=== PATIENT | male | born 1955 | race Caucasian/White ===

== ENCOUNTER 2020-11-24 23:58 | Inpatient (IN) | payer SELFPAY ==
[2020-11-25] MEDS ORDERED: Nitroglycerin 2% Ointment 1 INCH/1 GM Packet ONE (03:39)
[2020-11-25] MEDS ORDERED: hydrALAZINE 20 MG/ML VIAL ONE (03:40)
[2020-11-25] MEDS ORDERED: Ondansetron PF 4 MG/2 ML Vial IVP PRN (03:47)
[2020-11-25] MEDS ORDERED: Acetaminophen 325 MG TAB PO PRN (03:47)
[2020-11-25] MEDS ORDERED: Acetaminophen 650 MG Suppository PR PRN (03:47)
[2020-11-25] MEDS ORDERED: Ondansetron ODT 4 MG TAB PO PRN (03:47)
[2020-11-25] MEDS ORDERED: Nitroglycerin 0.4 MG TAB (25 Tab Bottle) SL PRN ×2 (03:47→16:25)
[2020-11-25 03:53] VITALS: BMI 23.6
[2020-11-25] MEDS ORDERED: Labetalol HCl 100 MG/20 ML VIAL SLOW IVP PRN (04:00)
[2020-11-25] MEDS ORDERED: hydrALAZINE 20 MG/ML VIAL SLOW IVP PRN (04:00)
[2020-11-25] MEDS ORDERED: Morphine 4 MG/ML VIAL SLOW IVP SCH (04:00)
[2020-11-25] MEDS ORDERED: Morphine 4 MG/ML VIAL SLOW IVP PRN (04:12)
[2020-11-25] MEDS ORDERED: Aspirin Chewable 81 MG TAB PO SCH (04:15)
[2020-11-25] MEDS ORDERED: methylPREDNISolone Sod Succ 40 MG VIAL IVP SCH ×2 (04:15→09:00)
[2020-11-25] MEDS ORDERED: Amlodipine 10 MG TAB PO SCH (04:30)
[2020-11-25] MEDS ORDERED: Azithromycin 500 MG in Sodium Chloride 0.9% 250 ML 250 ML IVPB SCH (05:00)
[2020-11-25 05:14] LABS: Troponin I 6.551 ng/mL (< 0.028)
[2020-11-25 08:00] LABS: #Lymphocytes 0.8 thou/uL (1.20-3.40); #Monocytes 0.2 thou/uL (0.11-0.59); %Basophils 0.1 % (0.0-1.0); %Eosinophils 0.1 % (0.0-10.0); %Lymphocytes 4.8 % (21.0-51.0); %Monocytes 1.4 % (0.0-10.0); %Neutrophils 93.6 % (42.0-75.0); Hemoglobin 14.3 g/dL (14.0-18.0); Mean Corpuscular HGB CONC 33.8 g/dL (32.0-36.0); Mean Corpuscular Hemoglobin 31.2 pg (27.0-31.0); Mean Corpuscular Volume 92.2 fL (78.0-98.0); Mean Platelet Volume 7.6 fL (7.4-10.4); Platelet Count 286 thou/uL (130-400); RBC Distribution Width 13.1 % (11.5-14.5); Red Blood Cell (RBC) Count 4.59 mill/uL (4.70-6.10); White Blood Cell (WBC) Count 16.1 thou/uL (4.8-10.8)
[2020-11-25] MEDS: Aspirin Chewable 81 MG TAB PO SCH (08:17)
[2020-11-25 08:21] LABS: Anion Gap 14 mmol/L (10-20); BUN (Urea Nitrogen) 14 mg/dL (8.4-25.7); Calc. Creatinine Clearance 84 mL/min (70-130); Calcium 9.2 mg/dL (7.8-10.44); Carbon Dioxide 25 mmol/L (23-31); Chloride 104 mmol/L (98-107); Glucose 119 mg/dL (80-115); Potassium 4.6 mmol/L (3.5-5.1); Sodium 138 mmol/L (136-145)
[2020-11-25 09:59] LABS: Magnesium 1.9 mg/dL (1.6-2.6)
[2020-11-25] MEDS ORDERED: cloNIDine 0.1 MG TAB PO PRN (10:34)
[2020-11-25] MEDS ORDERED: Magnesium Sulfate 2 GM in Sodium Chloride 0.9% 100 ML IVPB SCH (11:00)
[2020-11-25] MEDS ORDERED: Magnesium 2 GM/50 ML 2 GM in Premix Bag 1 BAG IVPB SCH (11:00)
[2020-11-25] MEDS ORDERED: Communication Order-Pharmacy FS SCH (12:15)
[2020-11-25] MEDS ORDERED: Heparin 10,000 UNITS/ 10 ML VIAL ONE ×2 (12:56→15:16)
[2020-11-25] MEDS ORDERED: Verapamil 5 MG/2 ML VIAL ONE (12:56)
[2020-11-25] MEDS ORDERED: Nitroglycerin 100MG/250ML BOT 250 ML ONE (12:56)
[2020-11-25] MEDS ORDERED: Lidocaine 1% (PF) 30 ML VIAL ONE (12:56)
[2020-11-25] MEDS ORDERED: Enoxaparin Sodium 80 MG/0.8 ML SYRINGE SC SCH (13:00)
[2020-11-25 13:10] LABS: Troponin I 57.199 ng/mL (< 0.028)
[2020-11-25] MEDS ORDERED: Midazolam HCl 2 mg/2 ml Vial ONE (14:33)
[2020-11-25] MEDS ORDERED: Fentanyl 100 MCG/2 ML VIAL ONE (14:58)
[2020-11-25] MEDS ORDERED: Clopidogrel Bisulfate 300 MG TAB ONE (15:19)
[2020-11-25] MEDS ORDERED: TICAGRELOR 90 MG TABLET ONE (15:44)
[2020-11-25] MEDS ORDERED: Acetaminophen/Codeine 30-300mg Tablet PO PRN ×2 (16:25)
[2020-11-25] MEDS ORDERED: Sodium Chloride 0.9% 200 ML IV PRN (16:25)
[2020-11-25] MEDS ORDERED: TICAGRELOR 90 MG TABLET PO SCH ×2 (16:25→21:00)
[2020-11-25] MEDS ORDERED: Carvedilol 3.125 MG TAB PO SCH (17:00)
[2020-11-25] MEDS: Carvedilol 3.125 MG TAB PO SCH (18:02)
[2020-11-25] MEDS: Doxycycline 100 MG CAP PO SCH (20:51)
[2020-11-25] MEDS: Enoxaparin Sodium 60 MG/0.6 ML SYRINGE SC SCH ×2 (20:51→21:38)
[2020-11-25] MEDS ORDERED: Atorvastatin Calcium 40 MG TAB PO SCH ×2 (21:00)
[2020-11-26 03:58] LABS: #Lymphocytes 1.9 thou/uL (1.20-3.40); #Monocytes 1.7 thou/uL (0.11-0.59); #Neutrophils 15.6 thou/uL (1.40-6.50); %Basophils 0.2 % (0.0-1.0); %Eosinophils 0.2 % (0.0-10.0); %Lymphocytes 9.7 % (21.0-51.0); %Monocytes 8.6 % (0.0-10.0); %Neutrophils 81.3 % (42.0-75.0); Hemoglobin 13.8 g/dL (14.0-18.0); Mean Corpuscular HGB CONC 33.1 g/dL (32.0-36.0); Mean Corpuscular Hemoglobin 30.6 pg (27.0-31.0); Mean Corpuscular Volume 92.5 fL (78.0-98.0); Mean Platelet Volume 7.7 fL (7.4-10.4); Platelet Count 302 thou/uL (130-400); RBC Distribution Width 13.2 % (11.5-14.5); Red Blood Cell (RBC) Count 4.51 mill/uL (4.70-6.10); White Blood Cell (WBC) Count 19.2 thou/uL (4.8-10.8)
[2020-11-26 04:20] LABS: ALT (SGPT) 40 U/L (8-55); AST (SGOT) 178 U/L (5-34); Albumin 3.7 g/dL (3.4-4.8); Alkaline Phosphatase 106 U/L (40-110); Anion Gap 12 mmol/L (10-20); BUN (Urea Nitrogen) 16 mg/dL (8.4-25.7); Bilirubin, Total 0.5 mg/dL (0.2-1.2); Calc. Creatinine Clearance 80 mL/min (70-130); Calcium 9.3 mg/dL (7.8-10.44); Carbon Dioxide 28 mmol/L (23-31); Cardiac Risk 3.6 (Less than 4.5); Chloride 102 mmol/L (98-107); Cholesterol 161 mg/dl (< 200 Desired); Globulin 2.7 g/dL (2.4-3.5); Glucose 116 mg/dL (80-115); HDL Cholesterol 45 mg/dL (>60 Neg Risk); LDL Cholesterol, Calculated 100 mg/dL; Magnesium 2.5 mg/dL (1.6-2.6); Potassium 4.1 mmol/L (3.5-5.1); Protein, Total 6.4 g/dL (5.8-8.1); Sodium 138 mmol/L (136-145); Triglycerides 79 mg/dL (Less than 150)
[2020-11-26 04:27] LABS: Critical Call Chem Troponin I RESULT DECREASING
[2020-11-26 05:06] LABS: CKMB 138.8 ng/mL (0-6.6)
[2020-11-26] MEDS ORDERED: predniSONE 20 MG TAB PO SCH (08:00)
[2020-11-26] MEDS: Doxycycline 100 MG CAP PO SCH (08:33)
[2020-11-26] MEDS: Carvedilol 3.125 MG TAB PO SCH ×2 (08:33→16:25)
[2020-11-26] MEDS: Aspirin Chewable 81 MG TAB PO SCH (08:34)
[2020-11-26] MEDS: Enoxaparin Sodium 60 MG/0.6 ML SYRINGE SC SCH (08:35)
[2020-11-26] MEDS ORDERED: Amlodipine 5 MG TAB PO SCH (09:00)
[2020-11-26] MEDS ORDERED: Amlodipine 10 MG TAB PO SCH (09:00)
[2020-11-26] MEDS ORDERED: TICAGRELOR 90 MG TABLET PO SCH (09:00)
[2020-11-26] MEDS ORDERED: Lisinopril 2.5 MG TAB PO SCH ×2 (09:00)
[2020-11-26 16:27] VITALS: BP 167/90; TEMP 98.1
== END 2020-11-26 18:11 | disposition home or self-care (01) | DRG 247 ==
LOC: 2NO 23:58 → OBSVTOIN 11-25 03:55
PROVIDERS: ADMIT Student in an Organized Health Care Education/Training Program; ATTEND Internal Medicine
PROC: 027034Z Dilation of Coronary Artery, One Artery with Drug-eluting Intraluminal Device, Percutaneous Approach (ICD-10-PCS; principal; 2020-11-25)
PROC: 4A023N7 Measurement of Cardiac Sampling and Pressure, Left Heart, Percutaneous Approach (ICD-10-PCS; 2020-11-25)
PROC: B2111ZZ Fluoroscopy of Multiple Coronary Arteries using Low Osmolar Contrast (ICD-10-PCS; 2020-11-25)
DX: I21.4 Non-ST elevation (NSTEMI) myocardial infarction (principal); I16.1 Hypertensive emergency; K56.1 Intussusception; K21.9 Gastro-esophageal reflux disease without esophagitis; F17.210 Nicotine dependence, cigarettes, uncomplicated; D72.829 Elevated white blood cell count, unspecified; J43.9 Emphysema, unspecified; E83.42 Hypomagnesemia; E78.5 Hyperlipidemia, unspecified; K80.20 Calculus of gallbladder without cholecystitis without obstruction; K57.90 Diverticulosis of intestine, part unspecified, without perforation or abscess without bleeding; Z79.51 Long term (current) use of inhaled steroids; Z79.82 Long term (current) use of aspirin; Z79.899 Other long term (current) drug therapy
CPT/HCPCS: 36415; 80048; 80053; 80061; 82553; 83735; 83880; 84484; 85025; 85347; 92928; 93005; 93010; 93458; 93798; 94640; 99152; 99153; C9600; J0360; J0456; J1644; J1650; J2001; J2250; J2270; J2920; J3010; J3475; J7050; J7512; J7620